=== PATIENT | female | born 1965 | race Caucasian/White ===

== ENCOUNTER 2021-12-27 22:09 | Emergency (ER) | payer SELFPAY ==
[~2021-12-27] VITALS: Ht 165.1 cm; Wt 100.0 kg
[2021-12-28] MEDS ORDERED: IBUPROFEN 400MG TABLET PO ONE
[2021-12-28] MEDS ORDERED: HYDROCODONE/ACETAMINOPHEN 5/325MG TABLET PO ONE
[2021-12-28] MEDS ORDERED: MORPHINE SULFATE 4 MG/ML CPJ (NOT FOR IM USE) IV STA (01:43)
[2021-12-28] MEDS ORDERED: ONDANSETRON HCL 4MG/2ML INJ IV STA (01:43)
[2021-12-28] MEDS ORDERED: SODIUM CHLORIDE 0.9% 1,000 ML IV ONE (01:45)
[2021-12-28] MEDS ORDERED: HYDR-4001 MT (03:22)
[2021-12-28] MEDS ORDERED: IBUP-2028 MT (03:22)
[2021-12-28 04:12] VITALS: BP 112/67
== END 2021-12-28 05:00 | disposition home or self-care (01) ==
LOC: ER 22:13 → CANBEDREQ 12-28 08:08
DX: S82.292A Other fracture of shaft of left tibia, initial encounter for closed fracture (principal); M25.562 Pain in left knee; Y08.89XA Assault by other specified means, initial encounter; Y93.89 Activity, other specified; Y92.89 Other specified places as the place of occurrence of the external cause; Y99.8 Other external cause status
CPT/HCPCS: 29505; 73560; 96361; 96374; 96375; 99284; J2270; J2405; J7030